=== PATIENT | male | born 1975 | race Caucasian/White ===

== ENCOUNTER 2025-01-03 21:25 | Emergency (ER) | payer MEDICAID, SELFPAY ==
[2025-01-03 21:26] VITALS: BP 166/100; PULSE 125; RESP 20; TEMP 36.2; O2SAT 100; BMI 32.9
[2025-01-03 21:56] VITALS: BP 145/101; PULSE 117; RESP 18; O2SAT 98
--- NOTE | 2025-01-03 22:29 | EX.ED.DYSGE1 ---
HPI History of Present Illness Chief Complaint: Other, Pain/Inj Informant: patient Narrative Narrative: Patient is a 49-year-old male with history of hypertension, hyperlipidemia, insulin-dependent diabetes mellitus presenting for medication refill as well as blue discoloration of his hands. Patient states he was released from long term about 6 weeks ago. He has run out of his medications as well as his crackers to check his blood sugar. He states he has appointment with [facility] on the first january but does not medications otherwise. States that he has been homeless in [place] with people since being released from long term. He states that today his hands were blue and the people who stayed with recommend he get checked out because he does have health issues. He notes that it is because he does not feel bad denies any chest pain, shortness of breath or difficulty breathing. Denies any swelling of his legs. Is wearing new jeans today. No other complaints or concerns reported. States that he has been on insulin anything since [id number] but is not sure what dose as well as Lantus. He states he had sliding scale while he was in long term. He also was on Lipitor 20 mg, Norvasc 10 mg, metoprolol succinate 50 mg and even before he went to long term was on lisinopril/HCTZ but has not been on that for quite some time (even before being in long term). [facility] Home Medications ?Medication ?Instructions ?Recorded ?Last Taken ?Type amlodipine 10 mg tablet (Norvasc) 10 mg PO DAILY #20 tabs 01/03/25 Unknown Rx lancets 28 gauge (Push Button #100 ea 01/03/25 Unknown Rx Safety Lancets) metoprolol succinate 50 mg 50 mg PO DAILY #20 tabs 01/03/25 Unknown Rx tablet,extended release 24 hr Allergy/AdvReac Type Severity Reaction Status Date / Time metformin Allergy Mild Diarrhea Verified 01/03/25 21:26 Social History Smoking Status: Never smoker ROS ROS ED Constitutional Constitutional ED: Denies chills or fever(s) ENT ENT ED: Denies sore throat Cardiovascular Cardiovascular: Denies chest pain Respiratory/Chest Respiratory/Chest: Denies cough, dyspnea or dyspnea on exertion Gastrointestinal Gastrointestinal: Denies abdominal pain, nausea or vomiting Genitourinary Genitourinary ED: Denies urinary frequency Musculoskeletal Musculoskeletal: Denies arthralgias or myalgias Integumentary Reports other Details: blue discoloration of the hands ; Denies rash Neurologic Neurologic: Denies weakness Psychiatric Psychiatric: Denies anxiety EXAM Physical Exam Const Vital Signs: 01/03/25 21:26 01/03/25 21:56 01/03/25 22:10 Temperature 97.2 F L Temperature Source Temporal Pulse Rate 125 H 117 H Respiratory Rate 20 H 18 Respiratory Effort Normal Respiratory Pattern Normal Blood Pressure 166/100 H 145/101 H Blood Pressure Mean 122 115 Pulse Ox 100 98 Oxygen Delivery Method Room Air Room Air Positive well nourished and well developed General Appearance ED: well developed and NAD HEENT Reports dry mucous membranes Mouth ED: Yes dry mucous membranes Mouth: dry mucous membranes Eyes PERRL Neck supple and no JVD Chest Wall inspection of chest normal Resp normal respiratory effort and clear to auscultation bilaterally Cardio regular rhythm and no murmurs Rate: tachycardic GI normal to inspection, nondistended, normoactive bowel sounds and non-tender Extremity normal to inspection General Extremety ED: Negative for edema General Extremity: Negative for edema Neuro oriented x3 Psych mental status grossly normal Skin no rashes or lesions noted Skin Narrative: Patient has a blue discoloration to his palms consistent with dye from his jeans. Brisk capillary refill. No cyanosis appreciated MDM MDM MDM Narrative Medical decision making narrative: Patient evaluated for concern cyanosis/blue discoloration to his hands. He also has been on his medications. The blue discoloration rubs off with alcohol swab is consistent with the dye from his jeans. I do not think there is any type of cyanosis. He is breathing easily with clear breath sounds is 98% on room air. Vital signs are significant for tachycardia and hypertension. Patient has been out of his diabetic medications. Will obtain basic labs including CBC and BMP for further evaluation of this and ensure he is not in HHNK, DKA or severe hyperglycemia. He is not having any chest pain I do not think requires a cardiac workup at this time. Tachycardia could also be rebound tachycardia as he has been out of his metoprolol for couple days. If workup is negative anticipate discharge with refills for his metoprolol, Norvasc, Lipitor and stylette's for checking his blood sugar. Lab work largely normal except for hyperglycemia with a glucose of 183. Is normal anion gap. Will discharge home. Lab Data Attestation: I reviewed the patient's lab results. Labs: Laboratory Results - last 24 hr 01/03/25 22:48 WBC 10.4 RBC 4.72 Hgb 13.0 Hct 38.3 L MCV 81.1 MCH 27.5 MCHC 33.9 RDW Std Deviation 36.6 RDW Coeff of [place] 12.4 Plt Count 230 MPV 10.3 Immature Gran % (Auto) 1.200 H Neut % (Auto) 66.0 Lymph % (Auto) 23.9 [place] % (Auto) 5.8 Eos % (Auto) 2.4 Baso % (Auto) 0.7 Absolute Neuts (auto) 6.9 Absolute Lymphs (auto) 2.49 Nucleated RBC % 0 Sodium 138 Potassium 4.1 Chloride 101 Carbon Dioxide 23.0 Anion Gap 14 BUN 11 Creatinine 1.03 Estim Creat Clear Calc 115.69 Est GFR (MDRD) Non-Af 90 BUN/Creatinine Ratio 11.0 Glucose 183 H Calcium 9.3 Discharge Plan Triage Chief Complaint: Other, Pain/Inj ED Provider: Ruth Patricia Dx/Rx/DC Orders Clinical Impression: No problem, feared complaint unfounded, Nonadherence to medication, Tachycardia Instructions: ED Diabetic Hyperglycemia Prescriptions: New (DME) lancets [Push Button Safety Lancets] 28 gauge misc See Rx Instructions .Route Qty: 100 0RF Rx Instructions: As directed metoprolol succinate 50 mg tablet extended release 24 hr 50 mg PO DAILY Qty: 20 0RF amlodipine [Norvasc] 10 mg tablet 10 mg PO DAILY Qty: 20 0RF Primary Care Provider: Gui Bunch [facility] Referrals: [facility],Hayley Weaver [Non-Staff] - Print Language: Latvian Disposition Disposition: Home, Self Care
[2025-01-03 23:01] LABS: Absolute Lymphocyte Count 2.49 X10^3/uL (0.83-4.51); Absolute Neutrophil Count 6.9 X10^3/uL (2.0-7.7); Basophil# 0.07 X10^3/uL; Basophil% 0.7 % (0-1); Eosinophil# 0.25 X10^3/uL; Eosinophils% 2.4 % (0-5); Hematocrit 38.3 % (40-54); Lymphocyte # 2.49 X10^3/ul (0.83-4.51); Lymphocyte % 23.9 % (19-41); Mean Corp Hgb Conc 33.9 g/dL (32-36); Mean Corpuscular Hgb 27.5 pg (27.0-32.0); Mean Corpuscular Volume 81.1 fL (80-94); Mean Platelet Vol. 10.3 fl (6.2-12.0); Monocyte% 5.8 % (0-10); NRBC Flagged by Analyzer 0 % (0-5); Platelet Count 230 K/mm3 (150-450); RBC Distribution Width CV 12.4 % (11.6-14.6); RBC Distribution Width SD 36.6 fl (35.1-43.9); Red Blood Count 4.72 M/mm3 (4.6-6.2); White Blood Count 10.4 K/mm3 (4.4-11.0)
[2025-01-03 23:44] LABS: Anion Gap 14 (5-15); BUN 11 mg/dL (4-19); Calcium,Total 9.3 mg/dL (7.6-11.0); Chloride 101 mmol/L (98-108); Creatinine, Serum 1.03 mg/dL (0.70-1.20); EST Glomerular Filtration Rate 90 (>60); Estimated Creatinine Clearance 115.69 ml/min (50-250); Glucose 183 mg/dL (70-99); Potassium 4.1 mmol/L (3.3-5.1); Sodium Level 138 mmol/L (133-145)
[2025-01-03] MEDS: Metoprolol(XL)Succ 50 MG Tablet PO (23:54)
[2025-01-04 00:01] VITALS: BP 147/105; PULSE 104; RESP 20; TEMP 36.4; O2SAT 96
== END 2025-01-04 00:01 | disposition home or self-care (01) ==
PROVIDERS: Emergency Provider Emergency Medicine; PCP Nurse Practitioner Family; Visit Provider Emergency Medicine
DX: E11.65 Type 2 diabetes mellitus with hyperglycemia (principal); Z71.1 Person with feared health complaint in whom no diagnosis is made; R00.0 Tachycardia, unspecified; I10 Essential (primary) hypertension; E78.5 Hyperlipidemia, unspecified; Z59.00 Homelessness unspecified; Z91.148 Patient's other noncompliance with medication regimen for other reason
CPT/HCPCS: 80048; 85025; 99283; A4216

== ENCOUNTER → 2025-08-02 | Outpatient (CLI) | payer MEDICAID, SELFPAY ==
[2025-08-02 12:24] LABS: Hematocrit 42.7 % (40-54); Hemoglobin 14.3 g/dL (13.0-16.5); Immature Granulocytes Count 0.040 X10^3/uL (0.0-0.0); Mean Corp Hgb Conc 33.5 g/dL (32-36); Mean Corpuscular Volume 83.1 fL (80-94); Mean Platelet Vol. 11.3 fl (6.2-12.0); NRBC Flagged by Analyzer 0 % (0-5); Platelet Count 208 K/mm3 (150-450); RBC Distribution Width CV 12.7 % (11.6-14.6); RBC Distribution Width SD 38.6 fl (35.1-43.9); Red Blood Count 5.14 M/mm3 (4.6-6.2); White Blood Count 6.2 K/mm3 (4.4-11.0)
[2025-08-02 13:02] LABS: Microalbumin,Random Urine < 12.0 mg/L (<20 mg/L)
[2025-08-02 14:28] LABS: AST(SGOT) 23 U/L (<=37); Alanine Aminotransfer ALT/SGPT 24 U/L (<=46); Albumin, Serum 4.3 g/dL (3.5-5.0); Alkaline Phosphatase 111 U/L (40-129); Anion Gap 9 (5-15); BUN 9 mg/dL (4-19); BUN/Creat Ratio 9.9 RATIO (10-20); Calcium,Total 9.5 mg/dL (7.6-11.0); Carbon Dioxide 29.9 mmol/L (21.0-32.0); Chloride 101 mmol/L (98-108); Cholesterol 186 mg/dL (<=200); Globulin 3.6 g/dL (2.2-4.2); Glucose 166 mg/dL (70-99); Low Density Lipoprotein Calc. 112 mg/dL; Potassium 4.4 mmol/L (3.3-5.1); Triglycerides 194 mg/dL; Very Low Density Lipoprotein 39 mg/dL (5-40); cholesterol:hdl ratio screen 5.27
== END | disposition home or self-care (01) ==
LOC: VSLAB 10:23
PROVIDERS: PCP Nurse Practitioner Family
DX: I10 Essential (primary) hypertension (principal); E11.8 Type 2 diabetes mellitus with unspecified complications; E78.2 Mixed hyperlipidemia
CPT/HCPCS: 36415; 80053; 80061; 82043; 83036; 84443; 85025